=== PATIENT | female | born 1950 | race Caucasian/White ===

== ENCOUNTER 2020-08-25 14:21 | Emergency (ER) | payer OTHER ==
[~2020-08-25] VITALS: Ht 165.1 cm; Wt 88.0 kg
[2020-08-25 14:48] VITALS: Ht 165.1 cm; Wt 88.0 kg
[2020-08-25 17:33] LABS: BASOPHIL % 0.6 % (0-2); PLATELET COUNT 298 x10^3mcL (130-400)
[2020-08-25 17:45] LABS: ALBUMIN 3.6 g/dL (3.4-5.0); ALKALINE PHOSPHATASE 143 U/L (46-116); ALT/SGPT 50 U/L (14-59); AST/SGOT 29 U/L (15-37); BILIRUBIN TOTAL 0.3 mg/dL (0.20-1.00); CARBON DIOXIDE 28.1 mmol/L (21-32); CHLORIDE SERUM 100 mmol/L (98-107); CREATININE SERUM 1.1 mg/dL (0.6-1.0); GLUCOSE SERUM 213 mg/dL (74-106); POTASSIUM SERUM 4.3 mmol/L (3.5-5.1); SODIUM SERUM 137 mmol/L (136-145); TOTAL PROTEIN, SERUM 7.7 g/dL (6.4-8.2)
[2020-08-25 17:46] LABS: RED CELL DISTRIBUTION WIDTH 14.6 % (11.5-14.5)
[2020-08-25 18:20] VITALS: BP 151/70
[2020-08-25 19:39] LABS: microscopic required? YES; urine erythrocyte TRACE (NEGATIVE)
== END 2020-08-25 20:23 | disposition home or self-care (01) ==
LOC: ED 14:21
PROVIDERS: Student in an Organized Health Care Education/Training Program
DX: E03.9 Hypothyroidism, unspecified (principal); R51.9 Headache, unspecified; I10 Essential (primary) hypertension; E11.9 Type 2 diabetes mellitus without complications; E78.00 Pure hypercholesterolemia, unspecified; R53.81 Other malaise